=== PATIENT | male | born 1980 ===

== ENCOUNTER 2021-05-25 21:57 | Emergency (ER) | payer SELFPAY ==
[2021-05-25 22:25] VITALS: BP 148/95; PULSE 63
[2021-05-25] MEDS ORDERED: Tetracaine HCl/PF 0.5% 4 ML Bottle ONE (22:28)
[2021-05-25 23:38] LABS: ANION GAP 10.1 meq/L (7-15); CHLORIDE,CL 101 mmol/L (98-107); SODIUM,NA 137 mmol/L (136-145)
--- NOTE | 2021-05-25 23:47 | EDM.PDOC ---
ED HPI GENERAL MEDICAL PROBLEM - General Chief Complaint: Eye Problems Stated Complaint: Eyes burning Time Seen by Provider: 05/25/21 22:30 Source of Information: Reports: Patient History Limitations: Reports: No Limitations - History of Present Illness INITIAL COMMENTS - FREE TEXT/NARRATIVE: Patient presented to the emergency department today with complaints of burning eye pain. He states that while he was at work he was using a chemical called [employer] friend which contains oxalic acid. when his eyes would not stop burning he came to the ED for evaluation. he tried visine eye drops but feels like they made it worse. He had no issues with his vision but reported that his eyelids were extremely swollen and painful as well. opening his eyes made it worse. nothing made it better. he has used this same apparatus cleaner multiple times in the past with no issues. he knows there is safety equipment but was not wearing it. Onset: Today Treatments INSOLE RASPER: Reports: Other (see below) (eye drops) Eye Pain Score (Numeric/FACES): 9 - Related Data Allergies Allergy/AdvReac Type Severity Reaction Status Date / Time No Known Allergies Allergy Verified 05/25/21 21:58 Home Meds: Home Meds . [No Known Home Meds] 05/25/21 [History] Past Medical History - Past Health History Medical/Surgical History: Denies Medical/Surgical History Social & Family History - Tobacco Use Tobacco Use Status *Q: Never Tobacco User Second Hand Smoke Exposure: No - Caffeine Use Caffeine Use: Reports: None - Recreational Drug Use Recreational Drug Use: No - Living Situation & Occupation Occupation: Employed ED ROS GENERAL - Review of Systems Review Of Systems: See Below Constitutional: Reports: No Symptoms HEENT: Reports: Eye Pain Respiratory: Reports: No Symptoms Cardiovascular: Reports: No Symptoms Endocrine: Reports: No Symptoms GI/Abdominal: Reports: No Symptoms : Reports: No Symptoms Musculoskeletal: Reports: No Symptoms Skin: Reports: Rash (on upper chest / neck) Neurological: Reports: No Symptoms Psychiatric: Reports: No Symptoms Hematologic/Lymphatic: Reports: No Symptoms Immunologic: Reports: No Symptoms ED EXAM GENERAL W FULL EYE - Physical Exam Exam: See Below Exam Limited By: No Limitations General Appearance: Alert, Moderate Distress Eye Exam: Bilateral Eye: Conjunctival Injection, EOMI, Normal Fundi, PERRL Visual Acuity (R) 20/: 20 Visual Acuity (L) 20/: 20 With Correction: No Eyelids: Bilateral: Edema, Lid Everted for Exam, Subcutaneous Emphysema Conjunctiva & Sclera: Bilateral: Conjunctival Edema, Injected Cornea Exam: Bilateral: Normal Appearance, Examined with Flourescein Extraocular Movements: Bilateral: Intact Pupils: Normal Accommodation Pupillary Size: Bilateral: 3 mm Pupillary Reaction: Bilateral: Brisk Anterior Chamber: Bilateral: Normal Appearance Posterior Chamber: Bilateral: Normal Funduscopic Ears: Normal External Exam Nose: Normal Inspection Throat/Mouth: Normal Voice, No Airway Compromise Head: Atraumatic, Normocephalic Neck: Normal Inspection Respiratory/Chest: No Respiratory Distress, Lungs Clear, Normal Breath Sounds Cardiovascular: Regular Rate, Rhythm, No Murmur (Male) Exam: Deferred Rectal (Males) Exam: Deferred Back Exam: Full Range of Motion Extremities: Normal Range of Motion, Non-Tender Neurological: Alert, Oriented, No Motor/Sensory Deficits Psychiatric: Normal Affect, Normal Mood Skin Exam: Warm, Dry Course - Vital Signs Last Recorded V/S: Last Vital Signs Temp 98.6 F 05/25/21 22:24 Pulse 63 05/25/21 22:24 Resp BP 148/95 H 05/25/21 22:24 Pulse Ox 99 05/25/21 22:24 - Orders/Labs/Meds Orders: Active Orders 24 hr Category Date Time Status COMPREHENSIVE METABOLIC PN,CMP [CHEM] Stat Lab 05/25/21 22:53 Ordered Labs: Laboratory Tests 05/25/21 Range/Units 23:14 WBC 6.5 (4.0-10.2) K/uL RBC 4.86 (4.33-5.41) M/uL Hgb 14.7 (13.1-16.8) g/dL Hct 42.1 (39.0-49.0) % MCV 86.6 (84.0-98.0) fL MCH 30.2 (28.2-33.3) pg MCHC 34.9 (31.7-36.0) g/dL RDW 11.9 (11.2-14.1) % Plt Count 226 (150-350) K/uL Neut % (Auto) 56.0 (45.0-80.0) % Lymph % (Auto) 34.2 (10.0-50.0) % [place] % (Auto) 6.7 (2.0-14.0) % Eos % (Auto) 2.8 (0.0-5.0) % Baso % (Auto) 0.3 (0.0-2.0) % Neut # (Auto) 3.65 (1.40-7.00) K/uL Lymph # (Auto) 2.23 (0.50-3.50) K/uL [place] # (Auto) 0.44 (0.00-1.00) K/uL Eos # (Auto) 0.18 (0.00-0.50) K/uL Baso # (Auto) 0.02 (0.00-0.20) K/uL Meds: Medications Discontinued Medications Generic Name Dose Route Start Last Admin Trade Name Freq PRN Reason Stop Dose Admin Tetracaine HCl Confirm 05/25/21 22:28 Tetracaine Hcl/Pf 0.5% 4 Ml Bottle Administered 05/25/21 22:29 Dose 4 ml .ROUTE .STK-MED ONE - Re-Assessments/Exams Free Text/Narrative Re-Assessment/Exam: contacted poison control, eye wash 15 minutes at a time followed by pH check. examined with sanderson lap and fluorecin. no corneal abrasion. labs WNL. 05/25/21 23:53 Departure - Departure Time of Disposition: 00:00 Disposition: Home, Self-Care 01 Condition: Good Clinical Impression: Chemical injury of eye - Discharge Information *PRESCRIPTION DRUG MONITORING PROGRAM REVIEWED*: Not Applicable *COPY OF PRESCRIPTION DRUG MONITORING REPORT IN PATIENT ERIKA: Not Applicable Instructions: Chemical Burn of the Eyes, Adult Additional Instructions: - call operational trainer tomorrow for eye exam: local ([facility] [phone]) for chemical irritant to eye and ED visit - avoid rubbing eyes - no drops in eyes - use property safety equipment when cleaning with chemicals Sepsis Event Note (ED) - Evaluation Sepsis Screening Result: No Definite Risk - Focused Exam Vital Signs: Vital Signs Temp Pulse BP Pulse Ox 05/25/21 22:24 98.6 F 63 148/95 H 99 - Problem List Review Problem List Initiated/Reviewed/Updated: Yes - My Orders Last 24 Hours: My Active Orders 05/25/21 22:53 COMPREHENSIVE METABOLIC PN,CMP [CHEM] Stat - Assessment/Plan Last 24 Hours: My Active Orders 05/25/21 22:53 COMPREHENSIVE METABOLIC PN,CMP [CHEM] Stat Assessment:: chemical irritant eye exposure, bilateral, initial encounter: - [employer] friend: active ingredient oxalic acid - no corneal abrasions noted on exam - eye wash for 15 minutes x3 after which pH was 7-8 - visual acuity intact Plan: - call operational trainer tomorrow for eye exam: local ([facility] [phone]) for chemical irritant to eye and ED visit - avoid rubbing eyes - no drops in eyes - use property safety equipment when cleaning with chemicals.
== END 2021-05-26 00:05 | disposition home or self-care (01) ==
LOC: LL.ED 21:57
DX: T54.2X1A Toxic effect of corrosive acids and acid-like substances, accidental (unintentional), initial encounter (principal); T26.62XA Corrosion of cornea and conjunctival sac, left eye, initial encounter; T26.61XA Corrosion of cornea and conjunctival sac, right eye, initial encounter; R60.0 Localized edema
CPT/HCPCS: 36415; 80053; 85025; 99283